=== PATIENT | female | born 1990 | race African-American/Black ===

== ENCOUNTER 2017-11-19 10:25 | Emergency (ER) | payer MEDICAID ==
[~2017-11-19] VITALS: Ht 157.5 cm; Wt 90.7 kg
[2017-11-19] MEDS ORDERED: IBUPROFEN 600 MG TABLET PO ONE (12:15)
[2017-11-19] MEDS ORDERED: IBUPROFEN 600 MG TABLET ONE (12:16)
[2017-11-19 12:28] VITALS: BP 110/69
--- NOTE | 2017-11-19 12:29 | NUR ---
Patient discharged to home in stable conditon. Written and verbal after care instructions given. Patient verbalizes understanding of instructions. [facility] Pt left ER and walks in steady gait.
== END 2017-11-19 12:33 | disposition home or self-care (01) ==
LOC: ER 10:25
DX: S93.401A Sprain of unspecified ligament of right ankle, initial encounter (principal); X58.XXXA Exposure to other specified factors, initial encounter; Y93.89 Activity, other specified; Y92.89 Other specified places as the place of occurrence of the external cause; Y99.8 Other external cause status
CPT/HCPCS: 73600; 73620; A4663

== ENCOUNTER 2018-11-01 09:36 | Emergency (ER) | payer MEDICAID ==
[~2018-11-01] VITALS: Ht 157.5 cm; Wt 81.2 kg
--- NOTE | 2018-11-01 09:46 | NUR ---
AMIRAH GONZALEZ AT BEDSIDE FOR MSE.
[2018-11-01 10:00] LABS: *URINE HCG, QUAL NEGATIVE (NEGATIVE)
[2018-11-01 10:06] LABS: BASOPHILS # (AUTO) 0.1 K/uL (0.0-8.0); BASOPHILS % (AUTO) 2.1 % (0.0-2.0); EOSINOPHILS # (AUTO) 0.1 K/uL (0.0-0.7); EOSINOPHILS % (AUTO) 1.6 % (0.0-7.0); HEMOGLOBIN 11.4 g/dL (10.9-14.3); LYMPHOCYTES # (AUTO) 2.4 K/uL (20.0-40.0); LYMPHOCYTES % (AUTO) 45.2 % (20.5-51.5); MEAN CORPUSCULAR HEMOGLOBIN 31.3 uug (24.7-32.8); MEAN CORPUSCULAR HGB CONC 34 g/dL (32.3-35.6); MEAN CORPUSCULAR VOLUME 93.5 fL (75.5-95.3); MONOCYTES # (AUTO) 0.4 K/uL (2.0-10.0); MONOCYTES % (AUTO) 7.6 % (0.0-11.0); NEUTROPHILS # (AUTO) 2.3 K/uL (1.8-8.9); NEUTROPHILS % (AUTO) 43.5 % (38.5-71.5); PLATELET COUNT (AUTO) 113 K/uL (179-408); RED BLOOD CELL COUNT(AUTO) 3.64 MIL/uL (3.63-4.92); WHITE BLOOD COUNT (AUTO) 5.2 K/uL (3.8-11.8)
--- NOTE | 2018-11-01 10:11 | NUR ---
AMIRAH GONZALEZ AT BEDSIDE FOR PT UPDATE.
--- NOTE | 2018-11-01 10:17 | NUR ---
Patient discharged to home in stable conditon. Written and verbal after care instructions given. Patient verbalizes understanding of instructions. ALL BELONGINGS W/ PT. PT SELF-AMBULATED W/O DIFFICULTY.
[2018-11-01 10:18] VITALS: BP 139/90
== END 2018-11-01 10:18 | disposition home or self-care (01) ==
LOC: ER 09:36
DX: N94.6 Dysmenorrhea, unspecified (principal)
CPT/HCPCS: 36415; 84703; 85025; A4663

== ENCOUNTER 2019-02-06 18:48 | Emergency (ER) | payer MEDICAID ==
[~2019-02-06] VITALS: Ht 157.5 cm; Wt 76.2 kg
--- NOTE | 2019-02-06 19:22 | NUR ---
DR. SCOTT AT BEDSIDE FOR MSE.
--- NOTE | 2019-02-06 19:35 | NUR ---
RADIOLOGY CALLED FOR US.
[2019-02-06 19:42] LABS: BASOPHILS # (AUTO) 0.1 K/uL (0.0-8.0); BASOPHILS % (AUTO) 1.4 % (0.0-2.0); EOSINOPHILS # (AUTO) 0.2 K/uL (0.0-0.7); EOSINOPHILS % (AUTO) 2.1 % (0.0-7.0); HEMATOCRIT 37.2 % (31.2-41.9); HEMOGLOBIN 12.3 g/dL (10.9-14.3); LYMPHOCYTES # (AUTO) 2.9 K/uL (20.0-40.0); LYMPHOCYTES % (AUTO) 37.2 % (20.5-51.5); MEAN CORPUSCULAR HEMOGLOBIN 30.4 uug (24.7-32.8); MEAN CORPUSCULAR HGB CONC 33 g/dL (32.3-35.6); MEAN CORPUSCULAR VOLUME 92.1 fL (75.5-95.3); MONOCYTES # (AUTO) 0.6 K/uL (2.0-10.0); MONOCYTES % (AUTO) 7.7 % (0.0-11.0); NEUTROPHILS % (AUTO) 51.6 % (38.5-71.5); PLATELET COUNT (AUTO) 141 K/uL (179-408); RED BLOOD CELL COUNT(AUTO) 4.04 MIL/uL (3.63-4.92); WHITE BLOOD COUNT (AUTO) 7.9 K/uL (3.8-11.8)
[2019-02-06 20:04] LABS: BILIRUBIN,DIRECT 0.1 mg/dL (0.0-0.2); BILIRUBIN,TOTAL 0.3 mg/dL (0.2-1.0); TOTAL PROTEIN, SERUM 7.3 g/dL (6.4-8.2)
[2019-02-06 20:04] LABS: *BILIRUBIN,URIN NEGATIVE (NEGATIVE); *BLOOD, URINE TRACE (NEGATIVE); *CLARITY,URINE CLEAR (CLEAR); *COLOR,URINE YELLOW (YELLOW); *KETONES,URINE 1+ (NEGATIVE); LEUKOCYTE ESTERASE ,URINE TRACE (NEGATIVE); NITRITE, URINE NEGATIVE (NEGATIVE); UGLUCOSE NEGATIVE (NEGATIVE)
[2019-02-06 20:11] LABS: BACTERIA,URINE FEW /HPF (NONE SEEN); RBC,URINE 0-3 /HPF (0-3); SQUAMOUS EPITHELIAL CELL,UR FEW /HPF (NONE SEEN)
--- NOTE | 2019-02-06 20:16 | NUR ---
US TECH AT BEDSIDE.
[2019-02-06] MEDS ORDERED: DOXYCYCLINE HYCLATE 100 MG TABLET PO ONE (21:15)
[2019-02-06] MEDS ORDERED: IBUPROFEN 800 MG TABLET PO ONE (21:15)
[2019-02-06] MEDS ORDERED: DOXYCYCLINE HYCLATE 100 MG TABLET ONE (21:22)
[2019-02-06] MEDS ORDERED: IBUPROFEN 800 MG TABLET ONE (21:23)
--- NOTE | 2019-02-06 21:24 | NUR ---
Patient discharged to home in stable conditon. Written and verbal after care instructions given. Patient verbalizes understanding of instructions. PATIENT LEFT WITH STABLE GAIT.
[2019-02-06 21:25] VITALS: BP 119/76
== END 2019-02-06 21:26 | disposition home or self-care (01) ==
LOC: ER 18:48
DX: R10.33 Periumbilical pain (principal); R11.0 Nausea
CPT/HCPCS: 36415; 76856; 83690; 85025; 87491; A4663

== ENCOUNTER 2022-04-01 19:42 | Emergency (ER) | payer SELFPAY ==
--- NOTE | 2022-04-01 21:00 | NUR ---
Patient was called to be triaged but was not present in the waiting room or outside of ER.
--- NOTE | 2022-04-01 21:30 | NUR ---
Patient was called to be triaged but was not present in the waiting room or outside of ER.
--- NOTE | 2022-04-01 21:42 | NUR ---
Patient was called to be triaged but was not present in the waiting room or outside of ER. Patient was not seen or triaged.
[2022-04-02] MEDS ORDERED: [UNRECOGNIZED DRUG - CODE] TP ×2 (00:44→00:50)
== END 2022-04-01 21:43 | disposition left against medical advice (07) ==
LOC: ER 19:45
DX: Z53.21 Procedure and treatment not carried out due to patient leaving prior to being seen by health care provider (principal)

== ENCOUNTER 2022-04-01 23:44 | Emergency (ER) | payer MEDICAID ==
[~2022-04-01] VITALS: Ht 157.5 cm; Wt 72.6 kg
[2022-04-02] MEDS ORDERED: [UNRECOGNIZED DRUG - CODE] TP ×2 (00:44→00:50)
[2022-04-02 00:55] VITALS: BP 118/78
== END 2022-04-02 00:55 | disposition home or self-care (01) ==
LOC: ER 04-02 00:01
DX: B85.0 Pediculosis due to Pediculus humanus capitis (principal)
CPT/HCPCS: A4663

== ENCOUNTER 2022-04-02 09:53 | Emergency (ER) | payer MEDICAID ==
[~2022-04-02] VITALS: Ht 154.9 cm; Wt 108.9 kg
[~2022-04-02 09:53] MED LIST: [UNRECOGNIZED DRUG - CODE] TP
[2022-04-02 10:12] VITALS: BP 123/76
--- NOTE | 2022-04-02 10:13 | NUR ---
Patient discharged to home in stable condition. Written and verbal after care instructions given. Patient verbalizes understanding of instructions. Stressed follow up or return to ER for worsening s/s.
== END 2022-04-02 10:21 | disposition home or self-care (01) ==
LOC: ER 09:53
DX: B85.0 Pediculosis due to Pediculus humanus capitis (principal)
CPT/HCPCS: A4663

== ENCOUNTER 2022-04-13 18:47 | Emergency (ER) | payer SELFPAY ==
[~2022-04-13] VITALS: Ht 157.5 cm; Wt 77.1 kg
--- NOTE | 2022-04-13 23:30 | NUR ---
PATIENT WAS CALLED TO BE PLACED IN ROOM BUT WAS NOT PRESENT IN THE WAITING ROOM OR OUTSIDE OF ER.
== END 2022-04-13 23:45 | disposition left against medical advice (07) ==
LOC: ER 18:49
DX: Z53.21 Procedure and treatment not carried out due to patient leaving prior to being seen by health care provider (principal)